=== PATIENT | female | born 1985 | race American Indian/Alaskan Native ===

== ENCOUNTER 2020-07-07 08:48 | Inpatient (IN) | payer OTHER ==
[2020-07-07] MEDS ORDERED: LACTATED RINGERS 1,000 ML ONE (09:21)
--- NOTE | 2020-07-07 10:17 | History and Physical Report ---
History of Present Illness Date of examination: 07/07/20 Date of admission: 07/07/20 08:48 Chief complaint: Presents for a scheduled induction of labor at 38 weeks due to a history of IUFD at 7 months per [facility] recommendation History of present illness: Early entry to care, co-managed with [facility] due to a history of IUFD. Past History Past Medical History: no pertinent history Past Surgical History: no surgical history Family/Genetic History: none Social history: no significant social history, single - Obstetrical History Expected Date of Delivery: 07/20/20 Actual Gestation: 38 Week(s) 1 Day(s) : 6 Para: 3 Hx # Term Pregnancies: 2 Number of Pregnancies: 1 Spontaneous Abortions: 1 Induced : 1 Number of Living Children: 2 #1 Gender: Female year: ,[birth year] Method of Delivery: Vaginal Gestational age at delivery: 24 Complications: other (stillborn) #2 Gender: Male year: 2,[birth year] Birthweight: 3.175 kg Method of Delivery: Vaginal Gestational age at delivery: 39 Complications: none #3 Infant Gender: Male year: 2,[birth year] Birthweight: 3.175 kg Method of Delivery: Vaginal Gestational age at delivery: 37 Complications: none Medications and Allergies Active Meds: Active Medications Ephedrine Sulfate (Ephedrine Sulfate) 10 mg IV Q2M PRN PRN Reason: Hypotension Fentanyl (Sublimaze) 100 mcg IV Q2H PRN PRN Reason: Pain,Severe (7-10) LABOR PAIN Oxytocin/Sodium Chloride (Pitocin/Ns 20 Unit/1000ml Drip) 20 units in 1,000 mls @ 125 mls/hr IV DIRECT NADIYA Lactated Ringer's (Lactated Ringers) 1,000 mls @ 125 mls/hr IV DIRECT NADIYA Ampicillin Sodium (Ampicillin/Ns 1 Gm/50 Ml) 1 gm in 50 mls @ 100 mls/hr IV Q4HR NADIYA; Protocol Ampicillin Sodium (Ampicillin/Ns 2 Gm/100 Ml) 2 gm in 100 mls @ 100 mls/hr IV ONCE ONE; Protocol Stop: 07/07/20 11:08 Lidocaine (Xylocaine 2%) 20 ml INFILTRATI ONCE ONE Stop: 07/07/20 10:10 Mineral Oil (Mineral Oil) 30 ml PO QHS PRN PRN Reason: Constipation Misoprostol (Cytotec) 25 mcg VAGINAL ONCE ONE Stop: 07/07/20 10:10 Ondansetron HCl (Zofran) 4 mg IV Q8H PRN PRN Reason: Nausea And Vomiting Terbutaline Sulfate (Brethine) 0.25 mg SUB-Q ONCE PRN PRN Reason: Hyperstimulation/Hypertonicity Terbutaline Sulfate (Brethine) 0.25 mg IVP ONCE PRN PRN Reason: Hyperstimulation/Hypertonicity Review of Systems All systems: negative - Vital Signs Vital signs: Vital Signs Pulse BP Pulse Ox 111 H 101/60 98 07/07/20 09:21 07/07/20 09:21 07/07/20 09:21 Temp Pulse Resp BP Pulse Ox 95 H 101/60 98 07/07/20 10:06 07/07/20 09:21 07/07/20 10:06 - Physical Exam Breasts: Positive: normal Cardiovascular: Regular rate Lungs: Positive: Clear to auscultation Abdomen: Positive: normal appearance, soft, normal bowel sounds Genitourinary (Female): Positive: normal external genitalia, normal perenium Vagina: Positive: normal moisture Uterus: Positive: enlarged Anus/Rectum: Positive: normal perianal skin Extremities: Positive: normal - Obstetrical FHR: category 1 Uterine Contraction Monitor Mode: External Cervical Dilatation: 1 Cervical Effacement Percentage: 20 station: -3 Uterine Contraction Pattern: Absent Results All other labs normal. Assessment and Plan A: IUP @ 38 1/7 Weeks Category I Tracing Hx of IUFD GBS Positive P: Admit to L&D Per Routine Orders GBS Prophylaxis Cytotec Induction
[2020-07-07] MEDS ORDERED: miSOPROStol 25 MCG TAB VG SCH (10:30)
[2020-07-07] MEDS ORDERED: LIDOCAINE (2%) 20 MG/1 ML VIAL 20 ML MDV INFILTRATI SCH (10:30)
[2020-07-07] MEDS ORDERED: AMPICILLIN/NS 2 GM/100 ML 2 GM/100 ML BAG IV SCH (11:00)
[2020-07-07] MEDS ORDERED: LACTATED RINGERS 1,000 ML IV SCH (11:00)
[2020-07-07] MEDS ORDERED: TERBUTALINE 1 MG/1 ML INJ IVP PRN (11:00)
[2020-07-07] MEDS ORDERED: ePHEDrine SULFATE 50 MG/1 ML INJ IV PRN ×2 (11:00→22:20)
[2020-07-07] MEDS ORDERED: OXYTOCIN 20 UNIT/1000ML DRIP 20 UNITS/1,000 ML BAG IV SCH (11:00)
[2020-07-07] MEDS ORDERED: MINERAL OIL 30 ML ORAL LIQD PO PRN (11:00)
[2020-07-07] MEDS ORDERED: TERBUTALINE 1 MG/1 ML INJ SUB-Q PRN (11:00)
[2020-07-07] MEDS ORDERED: ONDANSETRON 4 MG/2 ML INJ IV PRN (11:00)
[2020-07-07 11:02] LABS: Hematocrit 31.4 % (30.3-42.9); Hemoglobin 10.7 gm/dl (10.1-14.3); Mean Corpuscular HGB Conc 34 % (30-34); Mean Corpuscular Volume 98 fl (79-97); Platelet Count 378 K/mm3 (140-440); Red Blood Count 3.22 M/mm3 (3.65-5.03); Red Cell Distribution Width 14.3 % (13.2-15.2)
[2020-07-07] MEDS ORDERED: OXYTOCIN DRIP 30,000 MILLIUNITS/500 ML BAG IV ONE (13:35)
[2020-07-07] MEDS: fentaNYL 100 MCG/2 ML INJ IV PRN ×2 (14:31→21:14)
[2020-07-07] MEDS ORDERED: AMPICILLIN/NS 1 GM/50 ML 1 GM/50 ML BAG IV SCH (15:00)
--- NOTE | 2020-07-07 16:25 | Progress Note ---
Assessment and Plan A: IUP @ 38 1/7 Weeks Category I Tracing Hx of IUFD GBS Positive P: Continue Pitocin Augmentation Continue GBS Prophylaxis Subjective - Subjective Date of service: 07/07/20 Interval history: Early entry to care, co-managed with [facility] due to a history of IUFD. Patient reports: movement normal, contractions (rates pain 3/10; declines cervical exam) Objective - Vital Signs Vital Signs: Vital Signs - 12hr 07/07/20 07/07/20 07/07/20 09:21 09:26 09:31 Temperature Pulse Rate 111 H 101 H 105 H Respiratory Rate Blood Pressure 101/60 Blood Pressure [Left] O2 Sat by Pulse 98 97 98 Oximetry 07/07/20 07/07/20 07/07/20 09:36 09:41 09:46 Temperature Pulse Rate 86 91 H 96 H Respiratory Rate Blood Pressure Blood Pressure [Left] O2 Sat by Pulse 98 97 97 Oximetry 07/07/20 07/07/20 07/07/20 09:51 09:56 10:01 Temperature Pulse Rate 89 101 H 93 H Respiratory Rate Blood Pressure Blood Pressure [Left] O2 Sat by Pulse 97 96 98 Oximetry 07/07/20 07/07/20 07/07/20 10:06 10:11 10:16 Temperature Pulse Rate 95 H 88 95 H Respiratory Rate Blood Pressure Blood Pressure [Left] O2 Sat by Pulse 98 98 97 Oximetry 07/07/20 07/07/20 07/07/20 10:21 10:26 10:31 Temperature Pulse Rate 94 H 83 84 Respiratory Rate Blood Pressure Blood Pressure [Left] O2 Sat by Pulse 98 98 99 Oximetry 07/07/20 07/07/20 07/07/20 10:36 10:41 10:46 Temperature Pulse Rate 86 80 88 Respiratory Rate Blood Pressure Blood Pressure [Left] O2 Sat by Pulse 99 99 99 Oximetry 07/07/20 07/07/20 07/07/20 10:51 10:56 11:01 Temperature Pulse Rate 90 94 H 89 Respiratory Rate Blood Pressure Blood Pressure [Left] O2 Sat by Pulse 98 99 99 Oximetry 07/07/20 07/07/20 07/07/20 11:06 11:11 11:16 Temperature Pulse Rate 96 H 90 88 Respiratory Rate Blood Pressure Blood Pressure [Left] O2 Sat by Pulse 99 99 98 Oximetry 07/07/20 07/07/20 07/07/20 11:26 11:31 11:36 Temperature Pulse Rate 88 78 78 Respiratory Rate Blood Pressure Blood Pressure [Left] O2 Sat by Pulse 99 99 100 Oximetry 07/07/20 07/07/20 07/07/20 11:41 11:46 11:51 Temperature Pulse Rate 90 92 H 97 H Respiratory Rate Blood Pressure Blood Pressure [Left] O2 Sat by Pulse 98 98 98 Oximetry 07/07/20 07/07/20 07/07/20 11:56 12:01 12:06 Temperature Pulse Rate 96 H 93 H 92 H Respiratory Rate Blood Pressure Blood Pressure [Left] O2 Sat by Pulse 98 97 97 Oximetry 07/07/20 07/07/20 07/07/20 12:11 12:16 12:21 Temperature Pulse Rate 94 H 93 H 95 H Respiratory Rate Blood Pressure Blood Pressure [Left] O2 Sat by Pulse 98 97 98 Oximetry 07/07/20 07/07/20 07/07/20 12:26 12:31 12:36 Temperature Pulse Rate 93 H 95 H 98 H Respiratory Rate Blood Pressure Blood Pressure [Left] O2 Sat by Pulse 96 97 98 Oximetry 07/07/20 07/07/20 07/07/20 12:41 12:46 12:51 Temperature Pulse Rate 102 H 96 H 100 H Respiratory Rate Blood Pressure Blood Pressure [Left] O2 Sat by Pulse 97 98 97 Oximetry 07/07/20 07/07/20 07/07/20 12:56 13:01 13:06 Temperature Pulse Rate 103 H 101 H 99 H Respiratory Rate Blood Pressure Blood Pressure [Left] O2 Sat by Pulse 98 98 97 Oximetry 07/07/20 07/07/20 13:11 15:37 Temperature 98.1 F Pulse Rate 108 H 94 H Respiratory 16 Rate Blood Pressure 106/55 Blood Pressure 106/55 [Left] O2 Sat by Pulse 97 Oximetry - Exam Breasts: normal Cardiovascular: Regular rate Lungs: Clear to auscultation, Normal air movement Abdomen: Present: normal appearance, soft, normal bowel sounds Uterus: Present: normal, firm, fundal height above umbilicus FHR: category 1 Uterine Contraction Monitor Mode: External Uterine Contraction Pattern: Regular Uterine Tone Measurement Phase: Resting Uterine Contraction Intensity: Mild Extremities: normal - Labs Labs: Abnormal Labs 07/07/20 09:35 RBC 3.22 L MCV 98 H MCH 33 H Laboratory Results - last 24 hr 07/07/20 07/07/20 09:35 09:35 WBC 6.8 RBC 3.22 L Hgb 10.7 Hct 31.4 MCV 98 H MCH 33 H MCHC 34 RDW 14.3 Plt Count 378 Blood Type O POSITIVE Antibody Screen Negative
[2020-07-07] MEDS ORDERED: DEXMEDETOMIDINE 200 MCG/2 ML VIAL IV ONE (21:45)
[2020-07-07] MEDS ORDERED: NALOXONE 2 MG/2 ML INJ IV PRN (22:20)
--- NOTE | 2020-07-07 22:24 | Anesthesia Consultation ---
Anesthesia Consult and Med Hx Date of service: 07/07/20 - Airway Anesthetic Teeth Evaluation: Good, Partials ROM Head & Neck: Adequate Mental/Hyoid Distance: Adequate Mallampati Class: Class II Intubation Access Assessment: Probably Good - Pulmonary Exam CTA: Yes - Cardiac Exam Cardiac Exam: RRR - Pre-Operative Health Status ASA Pre-Surgery Classification: ASA2 Proposed Anesthetic Plan: Epidural - Pulmonary Hx Smoking: No Hx Asthma: No Hx Respiratory Symptoms: No SOB: No COPD: No Home Oxygen Therapy: No Hx Pneumonia: No Hx Sleep Apnea: No - Cardiovascular System Hx Hypertension: No Hx Coronary Artery Disease: No Hx Heart Attack/AMI: No Hx Angina: No Hx Percutaneous Transluminal Coronary Angioplasty (PTCA): No Hx Cardia Arrhythmia: No Hx Pacemaker: No Hx Internal Defibrillator: No Hx Valvular Heart Disease: No Hx Heart Murmur: No Hx Peripheral Vascular Disease: No - Central Nervous System Hx Neuromuscular Disorder: No Hx Seizures: No CVA: No Hx Back Pain: No Hx Psychiatric Problems: No - Gastrointestinal Hx Ulcer: No Hx Gastroesophageal Reflux Disease: Yes - Endocrine Hx Renal Disease: No Hx End Stage Renal Disease: No Hx Cirrhosis: No Hx Liver Disease: No Hx Insulin Dependent Diabetes: No Hx Non-Insulin Dependent Diabetes: No Hx Thyroid Disease: No Hx Hypothyroidism: No Hx Hyperthyroidism: No - Hematic Hx Anemia: No Hx Sickle Cell Disease: No - Other Systems Hx Alcohol Use: No Hx Substance Use: No Hx Cancer: No Hx Obesity: Yes
--- NOTE | 2020-07-07 22:26 | Progress Note ---
Labor Epidural - Labor Epidural Start Time: 21:50 Stop Time: 22:01 Performed by:: SULLY SADLER Procedure: Patient is requesting combined spinal epidural for labor and pain. H&P, labs were reviewed. All questions and concerns were answered. Informed consent was obtained. Timeout performed. Patient in sitting position on side of bed. Sterile prep and drape was performed. 3 mL 1% lidocaine skin wheal at L [3]-L [4]. 18-gauge Tuohy epidural needle advanced to [id number] using air technique, [6cm]. 27-gauge spinal needle advanced, positive free-flowing CSF. Spinal dose of [Precedex 10mcg]. Epidural catheter advanced to [10] cm. [negative] Aspiration, [negative] test dose. Sterile dressing applied. Patient tolerated procedure well.
[2020-07-07] MEDS ORDERED: fentaNYL-BUPIV 2 MCG/ML-0.125% 200 MCG/100 ML BAG EPIDURAL SCH (23:00)
--- NOTE | 2020-07-07 23:36 | Progress Note ---
Assessment and Plan A: IUP @ 38 1/7 Weeks Category I Tracing Hx of IUFD SROM GBS Positive P: Internals x 2 Placed Re-start Pitocin Augmentation Continue GBS Prophylaxis Subjective - Subjective Date of service: 07/07/20 Interval history: Early entry to care, co-managed with [facility] due to a history of IUFD. Patient reports: movement normal, contractions, other (Resting well under epidural anesthesia) Objective - Vital Signs Vital Signs: Vital Signs - 12hr 07/07/20 07/07/20 07/07/20 11:36 11:41 11:46 Temperature Pulse Rate 78 90 92 H Respiratory Rate Blood Pressure Blood Pressure [Left] O2 Sat by Pulse 100 98 98 Oximetry 07/07/20 07/07/20 07/07/20 11:51 11:56 12:01 Temperature Pulse Rate 97 H 96 H 93 H Respiratory Rate Blood Pressure Blood Pressure [Left] O2 Sat by Pulse 98 98 97 Oximetry 07/07/20 07/07/20 07/07/20 12:06 12:11 12:16 Temperature Pulse Rate 92 H 94 H 93 H Respiratory Rate Blood Pressure Blood Pressure [Left] O2 Sat by Pulse 97 98 97 Oximetry 07/07/20 07/07/20 07/07/20 12:21 12:26 12:31 Temperature Pulse Rate 95 H 93 H 95 H Respiratory Rate Blood Pressure Blood Pressure [Left] O2 Sat by Pulse 98 96 97 Oximetry 07/07/20 07/07/20 07/07/20 12:36 12:41 12:46 Temperature Pulse Rate 98 H 102 H 96 H Respiratory Rate Blood Pressure Blood Pressure [Left] O2 Sat by Pulse 98 97 98 Oximetry 07/07/20 07/07/20 07/07/20 12:51 12:56 13:01 Temperature Pulse Rate 100 H 103 H 101 H Respiratory Rate Blood Pressure Blood Pressure [Left] O2 Sat by Pulse 97 98 98 Oximetry 07/07/20 07/07/20 07/07/20 13:06 13:11 15:37 Temperature 98.1 F Pulse Rate 99 H 108 H 94 H Respiratory 16 Rate Blood Pressure 106/55 Blood Pressure 106/55 [Left] O2 Sat by Pulse 97 97 Oximetry 07/07/20 07/07/20 07/07/20 19:31 19:32 19:48 Temperature 97.8 F Pulse Rate 82 81 Respiratory 18 Rate Blood Pressure 103/57 Blood Pressure 103/57 [Left] O2 Sat by Pulse 97 Oximetry 07/07/20 07/07/20 07/07/20 19:53 19:58 20:03 Temperature Pulse Rate 78 85 80 Respiratory Rate Blood Pressure Blood Pressure [Left] O2 Sat by Pulse 98 97 97 Oximetry 07/07/20 07/07/20 07/07/20 20:08 20:13 20:18 Temperature Pulse Rate 78 78 80 Respiratory Rate Blood Pressure Blood Pressure [Left] O2 Sat by Pulse 97 97 97 Oximetry 07/07/20 07/07/20 07/07/20 20:23 20:28 20:33 Temperature Pulse Rate 77 79 81 Respiratory Rate Blood Pressure Blood Pressure [Left] O2 Sat by Pulse 98 99 98 Oximetry 07/07/20 07/07/20 07/07/20 20:38 20:43 20:48 Temperature Pulse Rate 91 H 81 77 Respiratory Rate Blood Pressure Blood Pressure [Left] O2 Sat by Pulse 100 100 100 Oximetry 07/07/20 07/07/20 07/07/20 20:49 20:53 20:58 Temperature Pulse Rate 75 77 79 Respiratory Rate Blood Pressure 115/66 Blood Pressure [Left] O2 Sat by Pulse 100 97 Oximetry 07/07/20 07/07/20 07/07/20 21:03 21:08 21:13 Temperature Pulse Rate 83 83 89 Respiratory Rate Blood Pressure Blood Pressure [Left] O2 Sat by Pulse 100 100 100 Oximetry 07/07/20 07/07/20 07/07/20 21:18 21:19 21:23 Temperature Pulse Rate 69 79 72 Respiratory Rate Blood Pressure Blood Pressure [Left] O2 Sat by Pulse 100 91 100 Oximetry 07/07/20 07/07/20 07/07/20 21:25 21:28 21:44 Temperature Pulse Rate 82 75 77 Respiratory Rate Blood Pressure Blood Pressure [Left] O2 Sat by Pulse 94 98 99 Oximetry 07/07/20 07/07/20 07/07/20 21:49 21:50 21:54 Temperature Pulse Rate 71 67 86 Respiratory Rate Blood Pressure 110/58 Blood Pressure [Left] O2 Sat by Pulse 100 98 Oximetry 07/07/20 07/07/20 07/07/20 21:55 21:57 21:59 Temperature Pulse Rate 75 57 L 60 Respiratory Rate Blood Pressure 118/71 109/64 115/71 Blood Pressure [Left] O2 Sat by Pulse 100 Oximetry 07/07/20 07/07/20 07/07/20 22:01 22:03 22:05 Temperature Pulse Rate 60 62 73 Respiratory Rate Blood Pressure 106/64 104/64 Blood Pressure [Left] O2 Sat by Pulse 98 Oximetry 07/07/20 07/07/20 07/07/20 22:07 22:10 22:11 Temperature Pulse Rate 66 67 68 Respiratory Rate Blood Pressure 113/64 Blood Pressure [Left] O2 Sat by Pulse 87 100 Oximetry 07/07/20 07/07/20 07/07/20 22:13 22:15 22:17 Temperature Pulse Rate 68 71 71 Respiratory Rate Blood Pressure 116/58 113/57 113/55 Blood Pressure [Left] O2 Sat by Pulse 100 Oximetry 07/07/20 07/07/20 07/07/20 22:19 22:20 22:21 Temperature Pulse Rate 71 65 63 Respiratory Rate Blood Pressure 109/53 108/55 Blood Pressure [Left] O2 Sat by Pulse 100 Oximetry 07/07/20 07/07/20 07/07/20 22:23 22:25 22:28 Temperature Pulse Rate 70 63 59 L Respiratory Rate Blood Pressure 119/62 109/59 110/55 Blood Pressure [Left] O2 Sat by Pulse 100 Oximetry 07/07/20 07/07/20 07/07/20 22:29 22:30 22:35 Temperature Pulse Rate 64 63 63 Respiratory Rate Blood Pressure 104/59 Blood Pressure [Left] O2 Sat by Pulse 100 100 Oximetry 07/07/20 07/07/20 07/07/20 22:36 22:40 22:45 Temperature Pulse Rate 64 65 63 Respiratory Rate Blood Pressure 98/57 101/61 103/65 Blood Pressure [Left] O2 Sat by Pulse 100 100 Oximetry 07/07/20 07/07/20 07/07/20 22:50 22:55 23:00 Temperature Pulse Rate 67 70 67 Respiratory Rate Blood Pressure 101/60 100/62 111/61 Blood Pressure [Left] O2 Sat by Pulse 100 100 100 Oximetry 07/07/20 07/07/20 07/07/20 23:05 23:10 23:16 Temperature Pulse Rate 60 56 L 77 Respiratory Rate Blood Pressure 103/58 103/57 Blood Pressure [Left] O2 Sat by Pulse 100 100 96 Oximetry 07/07/20 07/07/20 07/07/20 23:21 23:25 23:26 Temperature Pulse Rate 63 61 57 L Respiratory Rate Blood Pressure 99/57 96/53 Blood Pressure [Left] O2 Sat by Pulse 100 100 Oximetry - Exam Breasts: normal Cardiovascular: Regular rate Lungs: Normal air movement Abdomen: Present: normal appearance, soft Uterus: Present: normal, firm, fundal height above umbilicus FHR: category 1 FHR comments: Several decels after epidural anesthesia; Internals x 2 placed; FHTs resolved to a Category I Tracing Cervical Dilatation: 4.5 (SROM of a moderate amount of clear fluid at 2020) Cervical Effacement Percentage: 70 station: -3 Uterine Contraction Pattern: Irregular Uterine Tone Measurement Phase: Resting Uterine Contraction Intensity: Mild Extremities: normal - Labs Labs: Abnormal Labs 07/07/20 09:35 RBC 3.22 L MCV 98 H MCH 33 H Laboratory Results - last 24 hr 07/07/20 07/07/20 09:35 09:35 WBC 6.8 RBC 3.22 L Hgb 10.7 Hct 31.4 MCV 98 H MCH 33 H MCHC 34 RDW 14.3 Plt Count 378 Blood Type O POSITIVE Antibody Screen Negative
[2020-07-08] MEDS ORDERED: WITCH HAZEL/ GLYCERIN PAD TP PRN (01:58)
[2020-07-08] MEDS ORDERED: diphenhydrAMINE 25 MG CAP PO PRN (01:58)
[2020-07-08] MEDS ORDERED: LANOLIN/ZINC/DIMETHICONE (LANSINOH) 7 GM TP PRN (01:58)
--- NOTE | 2020-07-08 02:05 | Procedure Note ---
OB Delivery Note - Delivery Date of Delivery: 07/08/20 (0139) Surgeon: CONNIE RAZO Estimated blood loss: 200cc - Vaginal Delivery presentation: vertex Delivery position: OA Intrapartum events: mult.variable deceleratio Delivery induction: misoprostol Delivery augmentation: pitocin Delivery monitor: internal FHT, internal uterine Route of delivery: Delivery placenta: spontaneous Delivery cord: 3 umbilical vessels Episiotomy: none Delivery laceration: 1st degree Delivery repair: vicryl Anesthesia: epidural Delivery comments: of a live 6'8 female over a 1st degree perineal laceration under epidural anesthesia with Apgars of 8 and 9 at 0139 on 07/08/2020. Infant directly to maternal abd/chest, skin to skin contact. Spontaneous delivery of the placenta complete and intact with Triplett side presenting at 0149. Fundus is firm and midline located 4 below the U. Lochia is scant. 1st degree laceration repaired with 2-0 Vicryl on a SH. Cord blood collected; Placenta discarded. GBS prophylaxis x 2. - Infant A at 1 minute: 8 at 5 minutes: 9 Gender: Female (6'8)
[2020-07-08] MEDS: IBUPROFEN 600 MG TAB PO SCH ×4 (06:07→23:32)
[2020-07-08] MEDS: HYDROcodone/ACETAMINOPHEN 5-325 MG TAB PO PRN (06:43)
--- NOTE | 2020-07-08 07:04 | Post Anesthesia Evaluation ---
- Post Anesthesia Evaluation Patient Participated: Yes Airway Patent: Yes Stable Respiratory Function: Yes Nausea/Vomiting: No Temp > 96.8F: Yes Pain Manageable: Yes Adequeate Hydration: Yes Anesthesia Complications: No Block Receding Appropriately: Yes Patient on Ventilator: No
[2020-07-08 13:55] LABS: Hematocrit 29.1 % (30.3-42.9); Hemoglobin 9.9 gm/dl (10.1-14.3)
[2020-07-08] MEDS: PRENATAL VIT27-FE FUMARATE-FOLIC ACID VIT TAB PO SCH (17:46)
[2020-07-09] MEDS: HYDROcodone/ACETAMINOPHEN 5-325 MG TAB PO PRN (04:50)
[2020-07-09] MEDS: PRENATAL VIT27-FE FUMARATE-FOLIC ACID VIT TAB PO SCH (09:44)
[2020-07-09] MEDS: IBUPROFEN 600 MG TAB PO SCH ×2 (11:57→16:17)
[2020-07-09] MEDS ORDERED: FERROUS SULFATE 325 MG TAB PO SCH (14:00)
--- NOTE | 2020-07-09 14:36 | Progress Note ---
Assessment and Plan A: PP Day #1 Asymptomatic Anemia P: Follow Routine Orders FeSO4 325mg PO BID Depo Provera 150mg IM x 1 dose prior to discharge D/C Home today per patient request RTO in 6 Weeks Subjective - Subjective Date of service: 07/09/20 Interval history: Early entry to care, co-managed with [facility] due to a history of IUFD. Patient reports: appetite normal, voiding normally, pain well controlled, flatus, bowel movement, ambulating normally : doing well, bottle feeding Objective - Vital Signs Latest vital signs: Vital Signs Temp Pulse Resp BP BP Pulse Ox 07/09/20 11:57 20 07/09/20 07:48 98.6 F 68 18 106/68 97 07/09/20 04:50 07/09/20 00:30 98.6 F 66 16 117/79 07/08/20 23:32 20 07/08/20 19:30 98.6 F 69 18 104/62 07/08/20 15:49 98.0 F 60 18 93/47 99 Intake and Output 07/08/20 07/09/20 07/09/20 22:59 06:59 14:59 Intake Total 240 500 240 Balance 240 500 240 Intake: Oral 240 200 Intake, Free Water 300 240 Other: Total, Intake Amount 240 200 # Voids Void 1 1 1 - Exam Breasts: Present: normal Cardiovascular: Present: Regular rate Lungs: Present: Clear to auscultation, Normal air movement Abdomen: Present: normal appearance, soft, normal bowel sounds Uterus: Present: normal, firm, fundal height below umbilicus Extremities: Present: normal
--- NOTE | 2020-07-09 14:37 | Discharge Summary ---
Providers - Providers Date of Admission: 07/07/20 08:48 Date of discharge: 07/09/20 Attending physician: SUGAR MICHAEL Primary care physician: SUGAR MICHAEL Hospitalization Reason for admission: induction of labor Delivery: Episiotomy: none Laceration: 1st degree Other procedures: none complications: none Discharge diagnosis: IUP at term delivered [place] baby: female Condition at discharge: Good Disposition: DC-01 TO HOME OR SELFCARE Plan - Provider Discharge Summary Activity: routine, no sex for 6 weeks, no heavy lifting 4 weeks, no strenuous exercise Diet: routine Instructions: routine Additional instructions: [] Smoking cessation referral if applicable(refer to patient education folder for contact #) [] Refer to [facility] Booklet Call your doctor immediately for: * Fever > 100.5 * Heavy vaginal bleeding ( >1 pad per hour) * Severe persistent headache * Shortness of breath * Reddened, hot, painful area to leg or breast * Drainage or odor from incision. * Keep incision clean and dry at all times and follow doctor's instructions regarding bathing/showering - Follow up plan Follow up: SUGAR MICHAEL MD [Primary Care Provider] - 6 Weeks
[2020-07-09] MEDS ORDERED: medroxyPROGESTERone ACETATE 150 MG/ML SYRINGE IM ONE (15:33)
[2020-07-09 16:25] VITALS: BP 108/62
== END 2020-07-09 16:30 | disposition home or self-care (01) | DRG 775 ==
LOC: LD 08:48 → OB 07-08 04:25
PROVIDERS: ADMIT Obstetrics & Gynecology; ATTEND Obstetrics & Gynecology
PROC: 10E0XZZ Delivery of Products of Conception, External Approach (ICD-10-PCS; principal; 2020-07-07)
PROC: 3E0R3BZ Introduction of Anesthetic Agent into Spinal Canal, Percutaneous Approach (ICD-10-PCS; 2020-07-07)
PROC: 00HU33Z Insertion of Infusion Device into Spinal Canal, Percutaneous Approach (ICD-10-PCS; 2020-07-07)
PROC: 0HQ9XZZ Repair Perineum Skin, External Approach (ICD-10-PCS; 2020-07-07)
DX: O99.824 Streptococcus B carrier state complicating childbirth (principal); Z3A.38 38 weeks gestation of pregnancy; Z37.0 Single live birth; O70.0 First degree perineal laceration during delivery; O90.81 Anemia of the puerperium
CPT/HCPCS: 36415; 85014; 85018; 85027; 86850; 86900; 86901; G0378; J0290; J2590; J3010; J3490; J7120